=== PATIENT | female | born 1950 | race Caucasian/White ===

== ENCOUNTER 2019-03-06 17:03 | Inpatient (IN) ==
[2019-03-06] MEDS ORDERED: 0.9 % SODIUM CHLORIDE 1,000 ML IV ONE (17:14)
[2019-03-06] MEDS ORDERED: METOPROLOL TARTRATE 50 MG TABLET PO ONE (17:16)
--- NOTE | 2019-03-06 17:19 | Emergency Department Note ---
Arrhythmia/Palpitations HPI - General Chief Complaint: Arrhythmia/Palpitations Stated Complaint: Rapid heart rate Time Seen by Provider: 03/06/19 17:06 Source: patient, other Mode of arrival: wheelchair Limitations: no limitations - History of Present Illness HPI Narrative: 68-year-old female, somewhat anxious, comes in from Dr. Chaudhry's office for atrial fibrillation with rapid ventricular response. Heart rate is in the 140s. She used to have atrial fibrillation but she is not on any medicine for that now. She moved here from [place] over a year ago and has been off her medicine since then. Denies recent illness - Related Data Home Medications Medication Instructions Recorded Confirmed mirtazapine 15 mg tablet 15 mg PO QDAY 03/06/19 03/06/19 Previous Rx's Medication Instructions Recorded Albuterol Sulfate [Ventolin] 2 puff INH Q4-6HP PRN #1 inhaler 03/03/19 Fluticasone Propion/Salmeterol 1 each IH BID #1 blst.w.dev 03/03/19 [Fluticasone-Salmeterol 250-50] Lisinopril [Zestril] 10 mg PO DAILY #30 tab 03/03/19 Allergies Allergy/AdvReac Type Severity Reaction Status Date / Time prednisone [PREDNISONE] AdvReac Intermediate Agitation Verified 03/06/19 17:10 From Allergy Unknown HIVES Uncoded 03/06/19 17:10 Review of Systems All systems ED: reviewed and negative except as stated. Past Medical History - Past Medical History Attestation: Yes: The following information was validated with the patient. [facility] Narrative: Medical History CVA (cerebral vascular accident) (Acute) Pneumonia (Acute) Muscle spasm (Acute) Acute intoxication from hallucinogens (Acute) Stress and adjustment reaction (Acute) Medical history: Reports: atrial fibrillation, COPD, CVA (2 previous cva 1 yr and also 1 mo ago), hypertension, kidney stones Psychiatric history: Reports: anxiety Surgical history ED: Reports: appendectomy, cholecystectomy, hysterectomy, other (bladder susp) - Social History smoking status: Current some day smoker Alcohol use: Reports: None Drug use: Reports: none Physical Exam Overweight female. Normocephalic atraumatic. Conjunctive are clear sclera whit e nonicteric. No nasal discharge or congestion. Oropharynx pink moist. Neck is supple without lymphadenopathy or thyromegaly. Heart is tachycardic. I cannot hear a murmur. Lungs are basically clear to auscultation bilaterally without wheezes rales rhonchi or respiratory distress. Abdomen soft nontender nondistended. No pedal edema . Alert oriented. Anxious Limitations: no limitations Course Vital Signs Temperature 97.5 F 03/06/19 17:04 Respiratory Rate 20 03/06/19 17:04 Blood Pressure 169/115 03/06/19 17:04 Pulse Oximetry (%) 96 03/06/19 17:04 Temperature 97.5 F 03/06/19 17:11 Pulse Rate 89 03/06/19 20:26 Respiratory Rate 16 03/06/19 20:26 Blood Pressure 137/96 03/06/19 20:16 Pulse Oximetry (%) 98 03/06/19 20:26 Arrhythmia/Palpitations - Lab Data Lab results reviewed: Yes I reviewed the patient's lab results. Result diagrams: 03/06/19 19:24 03/06/19 17:31 Lab Results 03/06/19 03/06/19 03/06/19 Range/Units 17:31 17:31 17:31 WBC TNP RBC TNP Hgb TNP Hct TNP POC Hct 50.0 H (36.0-48.0) % MCV TNP MCH TNP MCHC TNP RDW TNP Plt Count TNP MPV TNP Gran % (38.0-78.0) % Lymph % (Auto) (15.5-49.0) % [place] % (Auto) (1.0-12.0) % Eos % (Auto) (0.0-7.0) % Baso % (Auto) (0.0-2.0) % Gran # (1.8-8.0) K/mcL Lymph # (Auto) (1.5-4.8) K/mcL [place] # (Auto) (0.1-0.9) K/mcL Eos # (Auto) (0.0-0.7) K/mcL Baso # (Auto) (0.0-0.3) K/mcL PT 12.6 (11.9-14.5) sec INR 0.9 (0.9-1.1) POC Sodium 143 (133-145) mmol/L Sodium 142 (133-145) mmol/L POC Potassium 3.7 (3.3-5.1) mmol/L Potassium 4.1 (3.3-5.1) mmol/L POC Chloride 107 (96-108) mmol/L Chloride 107 (96-108) mmol/L Carbon Dioxide 21 L (22-30) mmol/L POC Total CO2 26 (22-30) mmol/L Anion Gap 14.0 (8-16) POC BUN 7 L (8-23) mg/dl BUN 7 L (8-23) mg/dl Creatinine 0.5 L (0.6-1.1) mg/dl POC Creatinine 0.5 L (0.6-1.1) mg/dl GFR Calculation 99 Glucose 94 (70-105) mg/dL POC Glucose 92 (70-105) mg/dL Calcium 9.6 (8.6-10.4) mg/dl POC WB Ioniz Calcium 1.07 L (1.16-1.32) mmol/L Magnesium 1.9 (1.6-2.5) mg/dL Total Bilirubin 0.5 (0.0-1.0) mg/dL AST 31 (0-37) U/l ALT 22 (0-40) U/l Alkaline Phosphatase 88 (39-117) U/L Troponin T (0-0.03) ng/ml Total Protein 7.5 (5.9-8.4) gm/dL Albumin 4.0 (3.2-5.2) gm/dL Globulin 3.5 (2.2-3.7) gm/dL Albumin/Globulin Ratio 1.1 (1.0-2.3) TSH 4.18 (0.27-5.01) uIU/ml Urine Color Urine Appearance Urine pH (5.0-9.0) Ur Specific [place] (1.000-1.035) Urine Protein (NEG) mg/dL Urine Glucose (UA) (NEG) mg/dL Urine Ketones (NEG) mg/dL Urine Occult Blood (<0.03) mg/dL Urine Nitrate (NEG) Urine Bilirubin (NEG) mg/dL Urine Urobilinogen (NEG) mg/dL Ur Leukocyte Esterase (NEG) /uL Urine RBC (0-1) /hpf Urine WBC (0-4) /hpf Ur Squamous Epith Cells (0-4) /hpf Urine Bacteria (0) /hpf Ur Culture Indicated? 03/06/19 03/06/19 03/06/19 Range/Units 17:31 18:41 19:24 WBC 7.9 RBC 5.53 H Hgb 16.2 H Hct 48.6 H POC Hct (36.0-48.0) % MCV 88.0 MCH 29.3 MCHC 33.3 RDW 14.8 H Plt Count 217 MPV 8.2 Gran % 52.0 (38.0-78.0) % Lymph % (Auto) 37.0 (15.5-49.0) % [place] % (Auto) 8.2 (1.0-12.0) % Eos % (Auto) 2.0 (0.0-7.0) % Baso % (Auto) 0.8 (0.0-2.0) % Gran # 4.1 (1.8-8.0) K/mcL Lymph # (Auto) 2.9 (1.5-4.8) K/mcL [place] # (Auto) 0.6 (0.1-0.9) K/mcL Eos # (Auto) 0.2 (0.0-0.7) K/mcL Baso # (Auto) 0.1 (0.0-0.3) K/mcL PT (11.9-14.5) sec INR (0.9-1.1) POC Sodium (133-145) mmol/L Sodium (133-145) mmol/L POC Potassium (3.3-5.1) mmol/L Potassium (3.3-5.1) mmol/L POC Chloride (96-108) mmol/L Chloride (96-108) mmol/L Carbon Dioxide (22-30) mmol/L POC Total CO2 (22-30) mmol/L Anion Gap (8-16) POC BUN (8-23) mg/dl BUN (8-23) mg/dl Creatinine (0.6-1.1) mg/dl POC Creatinine (0.6-1.1) mg/dl GFR Calculation Glucose (70-105) mg/dL POC Glucose (70-105) mg/dL Calcium (8.6-10.4) mg/dl POC WB Ioniz Calcium (1.16-1.32) mmol/L Magnesium (1.6-2.5) mg/dL Total Bilirubin (0.0-1.0) mg/dL AST (0-37) U/l ALT (0-40) U/l Alkaline Phosphatase (39-117) U/L Troponin T < 0.01 (0-0.03) ng/ml Total Protein (5.9-8.4) gm/dL Albumin (3.2-5.2) gm/dL Globulin (2.2-3.7) gm/dL Albumin/Globulin Ratio (1.0-2.3) TSH (0.27-5.01) uIU/ml Urine Color Straw Urine Appearance Clear Urine pH 7.0 (5.0-9.0) Ur Specific [place] 1.004 (1.000-1.035) Urine Protein Neg (NEG) mg/dL Urine Glucose (UA) Negative (NEG) mg/dL Urine Ketones Neg (NEG) mg/dL Urine Occult Blood 0.03 A (<0.03) mg/dL Urine Nitrate Neg (NEG) Urine Bilirubin Neg (NEG) mg/dL Urine Urobilinogen Neg (NEG) mg/dL Ur Leukocyte Esterase 25 A (NEG) /uL Urine RBC 1 (0-1) /hpf Urine WBC 3 (0-4) /hpf Ur Squamous Epith Cells 0 (0-4) /hpf Urine Bacteria Few A (0) /hpf Ur Culture Indicated? Yes Urinalysis [id number] dipstick showed large amount of leukocytes positive nitrites no blood. Specific gravity normal-this was a FemCath - Radiology Data Radiology results reviewed: Yes I reviewed the patient's radiology results. Chest x-ray shows no acute CT scan head shows no acute findings. Old infarcts noted with encephalomalacia - EKG Data EKG attestation: Yes I reviewed and interpreted this EKG., Yes There are no EKG findings of acute coronary syndrome, Yes This EKG will be read by precision lens generator EKG results narrative: Atrial fibrillation with rate of 140, rapid ventricular response Disposition Pt seen by PATIENTS TRANSPORTER/PA only: No Clinical Impression: Atrial fibrillation with RVR UTI (urinary tract infection) Qualifiers: Urinary tract infection type: acute cystitis Hematuria presence: without hematuria Qualified Code(s): N30.00 - Acute cystitis without hematuria Hypertension Qualifiers: Hypertension type: essential hypertension Qualified Code(s): I10 - Essential (primary) hypertension Summary: Ordered laboratory work-up along with chest x-ray. Start p.o. metoprolol as she is already been in RVR for quite some time Metoprolol did not bring her blood pressure down so hydralazine is ordered. Chest x-ray shows no acute. UTI seen on film cath urinalysis [id number] dips tick. Start Macrobid She remains in A. fib with RVR pulses in the 120s so Cardizem drip was started She complained of headache so given Tylenol. However she was quite tearful and the headache was located in her left bahai/parietal area. As it was acute onset we will go ahead and do a CT scan of the head and give her some Dilaudid as well She requires admission for atrial fibrillation with rapid ventricular response and blood pressure control Discussed findings with hospitalist Dr. Downey. He agreed to accept patient for further care and evaluation in the hospital Disposition: Home, Self-Care Condition: Serious Referrals: Hollis Chaudhry MD [Primary Care Provider] -
[2019-03-06 17:41] LABS: POC Blood Urea Nitrogen 7 mg/dl (8-23); POC CO2 26 mmol/L (22-30); POC Calcium, Ionized 1.07 mmol/L (1.16-1.32); POC Chloride 107 mmol/L (96-108); POC Creatinine 0.5 mg/dl (0.6-1.1); POC Glucose, Random 92 mg/dL (70-105); POC Potassium 3.7 mmol/L (3.3-5.1); POC Sodium 143 mmol/L (133-145)
--- NOTE | 2019-03-06 17:54 | XRay Report ---
HISTORY: Dysrhythmia FINDINGS: The heart is borderline enlarged and slightly larger today than it was on 03/03/19. The difference could be related to differences between systole and diastole.. No congestive heart failure or pleural effusion are present. The bands of discoid atelectasis seen in the right lower lobe and right middle lobe on the chest CT done on 03/03/19 have resolved. There is persistent pleural thickening of the major fissure in the left side. IMPRESSION: Borderline cardiomegaly and no congestive heart failure Interpreted and Authenticated by: Diallo De Santiago 03/06/19
[2019-03-06 18:27] LABS: INR 0.9 (0.9-1.1); Prothrombin Time 12.6 sec (11.9-14.5)
[2019-03-06] MEDS ORDERED: hydrALAZINE 20 MG/ML VIAL IV ONE (18:47)
[2019-03-06] MEDS ORDERED: NITROFURANTOIN SR 100 MG CAPSULE PO ONE (18:58)
[2019-03-06 19:08] LABS: Thyroid Stimulating Hormone 4.18 uIU/ml (0.27-5.01)
[2019-03-06] MEDS ORDERED: ACETAMINOPHEN 325 MG TABLET PO ONE (19:12)
[2019-03-06] MEDS ORDERED: DILTIAZEM 25 MG/5 ML VIAL IV ONE (19:18)
[2019-03-06 19:19] LABS: ALT/SGPT 22 U/l (0-40); AST/SGOT 31 U/l (0-37); Albumin/Globulin Ratio 1.1 (1.0-2.3); Alkaline Phosphatase 88 U/L (39-117); Bilirubin,Total 0.5 mg/dL (0.0-1.0); Blood Urea Nitrogen 7 mg/dl (8-23); Calcium 9.6 mg/dl (8.6-10.4); Carbon Dioxide 21 mmol/L (22-30); Chloride 107 mmol/L (96-108); Globulin 3.5 gm/dL (2.2-3.7); Glomerular Filtration Rate 99; Glucose 94 mg/dL (70-105)
[2019-03-06] MEDS ORDERED: DILTIAZEM 125 MG in DEXTROSE 5% IN WATER 100 ML IV SCH (19:30)
[2019-03-06] MEDS ORDERED: HYDROmorphone 2 MG/ML VIAL IV PRN (19:36)
[2019-03-06 19:52] LABS: Appearance,Urine CLEAR; Bacteria,Urine FEW /hpf (0); Bilirubin,Urine NEG (NEG); Color,Urine STRAW; Culture Indicated,Urine YES; Glucose,Urine (UA) NEGATIVE (NEG); Ketones,Urine NEG (NEG); Leukocyte Esterase,Urine 25 /uL (NEG); Nitrate,Urine NEG (NEG); Protein,Urine NEG (NEG); Specific Gravity,Urine 1.004 (1.000-1.035); Urine Blood 0.03 mg/dL (<0.03); Urine RBC 1 /hpf (0-1); Urine Squamous Epithelial Cell 0 /hpf (0-4); Urine WBC 3 /hpf (0-4); Urobilinogen,Urine NEG (NEG)
[2019-03-06 19:52] LABS: Basophils # (Auto) 0.1 K/mcL (0.0-0.3); Basophils % (Auto) 0.8 % (0.0-2.0); Eosinophils # (Auto) 0.2 K/mcL (0.0-0.7); Hematocrit 48.6 % (36.0-48.0); Hemoglobin 16.2 g/dL (12.0-15.0); Lymphocytes # (Auto) 2.9 K/mcL (1.5-4.8); Mean Corpuscular HGB Conc 33.3 g/dL (31.0-36.0); Mean Platelet Volume 8.2 fL (7.4-10.4); Monocytes # (Auto) 0.6 K/mcL (0.1-0.9); Monocytes % (Auto) 8.2 % (1.0-12.0); Platelet Count 217 K/mcL (140-440); RBC 5.53 M/mcL (4.00-5.20); Red Cell Distribution Width 14.8 % (11.5-14.5); WBC 7.9 K/mcL (4.5-11.0)
[2019-03-06] MEDS ORDERED: cefTRIAXone 2 GM in DEXTROSE 5% IN WATER 50 ML IV SCH (21:16)
[2019-03-06] MEDS ORDERED: ONDANSETRON 4 MG/2 ML VIAL IV PRN (21:16)
[2019-03-06] MEDS: 0.9 % SODIUM CHLORIDE 10 ML SYRINGE IV SCH (22:00)
[2019-03-06] MEDS ORDERED: IPRATROPIUM/ALBUTEROL 3 ML AMPUL.NEB NEB PRN (22:05)
[2019-03-06] MEDS ORDERED: cefTRIAXone 2 GM VIAL ONE (22:08)
--- NOTE | 2019-03-06 22:08 | Internal Med History&Physical ---
Medical - H&P: [facility] Patient information: Note initiated : 03/06/19 at 10:06 pm Service Date, if different from initiated Date: [] Patient: Aurelia Pride a 68 y/o F admitted on 03/06/19 for Rapid heart rate. Chief Complaint: [] History of present illness: Ms. Pride is a 68 year old F 68-year-old female with a history of anxiety was transferred from primary care's office due to atrial fibrillation RVR. Patient's heart rate was in the 140s in the ER and blood pressure was more than 160. She was given metoprolol. Without much improvement and then she was started on Cardizem drip she is also r eceived hydralazine IV for axillary hypertension. Patient denied any cardiac history other than atrial fibrillation, no respiratory symptoms but she used to have nebulizer treatments in the past. She moved from [place] over a year ago and was not taking any of her medications. - Constitutional Constitutional: Present: fatigue. Absent: anorexia, chills, daytime sleepiness, excessive sweating - EENT Eyes: Absent: blurry vision, change in vision, decreased night vision Ears: Absent: ear discharge, ear pain, tinnitus Nose, mouth and throat: Absent: bleeding gums, change in voice, dental pain - Cardiovascular Cardiovascular: Present: chest pain with activity, dyspnea, dyspnea on exertion. Absent: leg edema, leg ulcers - Respiratory Respiratory: Present: dyspnea on exertion, pain on inspirtation. Absent: wheezing - Gastrointestinal Gastrointestinal: Present: cramping. Absent: diarrhea, dyspepsia, dysphagia - Genitourinary Genitourinary: Absent: abnormal vaginal bleeding, amenorrhea, breast mass - Neurological Neurological: Present: focal weakness, weakness. Absent: confusion, tingling, tremor(s) - Psychiatric Psychiatric: Present: anxiety. Absent: behavioral changes, change in appetite, confusion Medical - H&P: PMH Medical history: Medical History CVA (cerebral vascular accident) (Acute) Pneumonia (Acute) Muscle spasm (Acute) Acute intoxication from hallucinogens (Acute) Stress and adjustment reaction (Acute) Family history: reviewed and not pertinent Medical - H&P: Meds Home Medications Medication Instructions Recorded Confirmed Type Albuterol Sulfate [Ventolin] 2 puff INH Q4-6HP PRN #1 inhaler 03/03/19 03/06/19 Rx Fluticasone Propion/Salmeterol 1 each IH BID #1 blst.w.dev 03/03/19 03/06/19 Rx [Fluticasone-Salmeterol 250-50] Lisinopril [Zestril] 10 mg PO DAILY #30 tab 03/03/19 03/06/19 Rx mirtazapine 15 mg tablet 15 mg PO QDAY 03/06/19 03/06/19 History Allergies Allergy/AdvReac Type Severity Reaction Status Date / Time prednisone [PREDNISONE] AdvReac Intermediate Agitation Verified 03/06/19 17:10 From Allergy Unknown HIVES Uncoded 03/06/19 17:10 Medical - H&P: Exam - Constitutional Vitals: Temp Pulse Resp BP Pulse Ox 98.7 F 97 H 18 118/97 100 03/06/19 21:19 03/06/19 21:19 03/06/19 21:32 03/06/19 21:32 03/06/19 21:19 General appearance: mild distress, morbidly obese - Head Head exam: Present: atraumatic, normal inspection - Expanded Head Exam Head exam: Absent: abrasion, contusion, general tenderness - Eye Eye exam: Absent: nystagmus Pupils: Present: PERRL. Absent: miosis - ENT ENT exam: Present: mucous membranes dry, normal exam - Expanded ENT Exam Nose & sinuses exam: Present: external nose, grossly normal. Absent: rhinophyma, inflamed nasal mucosa, nasal discharge, perforated septum, deviated septum Mouth exam: Present: dry mucosa. Absent: drooling, laceration, moist - Neck Neck exam: Absent: full ROM, lymphadenopathy, meningismus - GI/Abdominal GI/Abdominal exam: Present: normal bowel sounds, soft, distended - Neurological Exam Neurological exam: Present: alert, CN II-XII intact (Motor strength bilateral upper and lower extremity equal 4 x 5, patient was complaining of right upper extremity weakness I do not feel any significant difference. Reflexes intactSensory examination grossly intact), oriented X3, reflexes normal - Expanded Neurological Exam Neurological exam expanded: Present: expressive aphasia. Absent: ataxia, receptive aphasia Patient oriented to: Present: person, place, time Speech: Present: expressive aphasia - Psychiatric Psychiatric exam: Present: anxious, flat affect Medical - H&P: Reslt - Labs CBC & Chem 7: 03/06/19 19:24 03/06/19 17:31 Labs: Short CBC 03/06/19 03/06/19 Range/Units 17:31 19:24 WBC TNP 7.9 Hgb TNP 16.2 H Hct TNP 48.6 H Plt Count TNP 217 BMP 03/06/19 17:31 Sodium 142 Potassium 4.1 Chloride 107 Carbon Dioxide 21 L BUN 7 L Creatinine 0.5 L Glucose 94 Calcium 9.6 Cardiac Enzymes 03/06/19 Range/Units 17:31 Troponin T < 0.01 (0-0.03) ng/ml Liver Function 03/06/19 Range/Units 17:31 Total Bilirubin 0.5 (0.0-1.0) mg/dL AST 31 (0-37) U/l ALT 22 (0-40) U/l Alkaline Phosphatase 88 (39-117) U/L Albumin 4.0 (3.2-5.2) gm/dL Urine 03/06/19 Range/Units 18:41 Urine Color Straw Urine Appearance Clear Urine pH 7.0 (5.0-9.0) Ur Specific [place] 1.004 (1.000-1.035) Urine Protein Neg (NEG) mg/dL Urine Glucose (UA) Negative (NEG) mg/dL Medical - H&P: A/P - Narrative A/P Narrative: Atrial fibrillation RVR Patient was given metoprolol IV in the ER without any improvement Previous history of atrial fibrillation was not taking any medications or anticoagulation Plan She was started on diltiazem bolus and continue titration We will restart her on apixaban Echocardiogram ordered Trending the troponin Ordered TSH level Electrolytes History of stroke Patient was complaining of slightly worsening of right-sided weakness since this morning But on examination bilateral upper extremity motor strength appears to be equal CT scan in the ER no new stroke If she continued having symptoms we will obtain an MRI Continue aspirin 81 mg History of essential hypertension- Hypertension Blood pressure was more than 160 in the ER Monitor with the Cardizem drip and restart beta-stephan Probable COPD-not in any exacerbation DuoNeb's every 4 hours as needed Continuous pulse oximetry DVT prophylaxis-SCDs, starting apixaban CODE STATUS-full code
[2019-03-06] MEDS ORDERED: ACETAMINOPHEN 1,000 MG/100 ML BOTTLE IV ONE (22:40)
[2019-03-06 22:44] LABS: ALT/SGPT 22 U/l (0-40); AST/SGOT 25 U/l (0-37); Albumin 3.7 gm/dL (3.2-5.2); Albumin/Globulin Ratio 1.2 (1.0-2.3); Alkaline Phosphatase 82 U/L (39-117); Bilirubin,Total 0.5 mg/dL (0.0-1.0); Blood Urea Nitrogen 6 mg/dl (8-23); Calcium 8.7 mg/dl (8.6-10.4); Carbon Dioxide 24 mmol/L (22-30); Chloride 107 mmol/L (96-108); Globulin 3.2 gm/dL (2.2-3.7); Glomerular Filtration Rate 99; Glucose 99 mg/dL (70-105); Thyroid Stimulating Hormone 5.94 uIU/ml (0.27-5.01)
[2019-03-06] MEDS ORDERED: ALBUTEROL SULFATE 2.5 MG/3 ML NEBULIZER NEB SCH (23:00)
[2019-03-06] MEDS: DOCUSATE SODIUM 100 MG CAPSULE PO SCH (23:15)
[2019-03-07 05:07] LABS: Hematocrit 46.2 % (36.0-48.0); Hemoglobin 15.1 g/dL (12.0-15.0); Mean Cell Volume 89.4 fL (80.0-100.0); Mean Corpuscular HGB Conc 32.8 g/dL (31.0-36.0); Mean Platelet Volume 8.9 fL (7.4-10.4); Platelet Count 168 K/mcL (140-440); RBC 5.16 M/mcL (4.00-5.20); Red Cell Distribution Width 15.1 % (11.5-14.5); WBC 6.5 K/mcL (4.5-11.0)
[2019-03-07 05:09] LABS: ALT/SGPT 21 U/l (0-40); AST/SGOT 27 U/l (0-37); Albumin 3.5 gm/dL (3.2-5.2); Albumin/Globulin Ratio 1.1 (1.0-2.3); Alkaline Phosphatase 80 U/L (39-117); Bilirubin,Total 0.5 mg/dL (0.0-1.0); Blood Urea Nitrogen 7 mg/dl (8-23); Calcium 8.9 mg/dl (8.6-10.4); Carbon Dioxide 23 mmol/L (22-30); Chloride 107 mmol/L (96-108); Globulin 3.1 gm/dL (2.2-3.7); Glomerular Filtration Rate 106; Glucose 102 mg/dL (70-105)
[2019-03-07] MEDS: 0.9 % SODIUM CHLORIDE 10 ML SYRINGE IV SCH ×3 (05:47→20:42)
[2019-03-07] MEDS ORDERED: PANTOPRAZOLE 40 MG TABLET PO SCH (07:30)
[2019-03-07] MEDS ORDERED: DILTIAZEM 125 MG in DEXTROSE 5% IN WATER 100 ML IV SCH (07:30)
[2019-03-07 07:54] LABS: Band Neutrophils % 3 % (0-10); Eosinophils % (Manual) 3 % (0-7); Lymphocytes % 43 % (15-49); Monocytes % (Manual) 9 % (1-12); Platelet Estimate NORMAL (NORMAL); RBC Morphology NORMAL (NORMAL); Segmented Neutrophils % 42 % (38-78)
--- NOTE | 2019-03-07 08:02 | Cat Scan Report ---
History: Headaches and tachycardia TECHNIQUE: The brain was imaged without contrast at 2.5 mm intervals. The radiation exposure was limited using dose reduction technology. A large old lacunar infarct with encephalomalacia is present lateral to the left ventricle. Involves a portion of the anterior body of the left caudate nucleus, left boyd radiata and the top of the putamen. This was not present on the prior brain MRI done at [facility] on 07/17/16. A 3 mm old lacunar infarct is present anteriorly and medially in the left thalamus. This is a chronic stable finding. No new infarct is identified. There is no hemorrhage or mass effect. There is mild atrophy is present, predominantly involving the frontal and temporal lobes. The atrophy has progressed since 2017. The ventricles are prominent but proportionate to the atrophy. No abnormal extra-axial fluid collections present. Minor mucosal thickening is seen along the van of a few anterior ethmoid air cells. The frontal sinuses are clear. IMPRESSION: Old lacunar infarcts in the left basal ganglia, boyd radiata and left thalamus Worsening cerebral atrophy Dr. Tom was called with the results Interpreted and Authenticated by: Diallo De Santiago 03/07/19
[2019-03-07] MEDS ORDERED: APIXABAN 5 MG TABLET PO SCH (09:00)
[2019-03-07] MEDS ORDERED: DILTIAZEM 30 MG TABLET PO SCH (09:00)
[2019-03-07] MEDS ORDERED: ASPIRIN 81 MG TAB.CHEW CHEWED SCH (09:00)
[2019-03-07] MEDS: DOCUSATE SODIUM 100 MG CAPSULE PO SCH ×3 (09:09→21:01)
[2019-03-07] MEDS: ACETAMINOPHEN 1,000 MG/100 ML BOTTLE IV PRN ×2 (09:10)
[2019-03-07] MEDS ORDERED: traMADol 50 MG TABLET PO PRN (10:31)
[2019-03-07] MEDS ORDERED: DILTIAZEM 125 MG in DEXTROSE 5% IN WATER 100 ML IV PRN ×2 (11:00→12:18)
[2019-03-07] MEDS ORDERED: LISINOPRIL 10 MG TABLET PO SCH (11:22)
[2019-03-07] MEDS ORDERED: ALBUTEROL SULFATE 1 PUFF INHALER INH PRN ×2 (11:23→12:18)
--- NOTE | 2019-03-07 11:26 | Internal Med Progress Note ---
Medical - PN: Subj Patient information: Note initiated : 03/07/19 at 11:24 am Service Date, if different from initiated Date: [] Patient: Aurelia Pride 68 y/o F admitted on 03/06/19 for Rapid heart rate. Chief Complaint: [] Interval history: 68-year-old female with a history of previous CVA x2, atrial fibrillation was not taking her medications admitted with worsening shortness of breath and A. fi b RVR. She was given metoprolol in the ER which did not improve her heart rate then started on Cardizem drip. 03/07-her heart rate is 06/26/2019 this morning she was started on p.o. Cardizem 60 twice daily in addition to the Cardizem drip and she converted back to normal sinus rhythm her heart rate has been 60-70 and blood pressure is slightly elevated. We will continue monitoring her on telemetry and continue with the p.o. Cardizem. Ordered an echocardiogram troponin trend has been negative. She seems to be having drug-seeking behavior she was asked for benzodiazepine and narcotics. Pertinent ROS: General appearance-obese not in any distress, alert oriented Respiratory-no shortness of breath no wheezing CVS-no chest pain no palpitations Abdominal-distended no pain Urinary-denied any urine symptoms Lower extremity-denied any pain she has mild edema Neurology-denied any new focal deficit she mentions she has old right-sided weakness and aphasia which seems to be the same - Constitutional Vitals: Vital Signs Temp Pulse Resp BP Pulse Ox 97.2 F 60 18 154/85 98 03/07/19 11:01 03/07/19 11:03 03/07/19 11:03 03/07/19 11:01 03/07/19 11:03 Period Temp Pulse Resp BP Sys/Berger Pulse Ox Last 24 Hr 97.2 F-98.8 F 37-146 12-29 111-182/67-137 85-100 Intake and Output 03/06/19 03/07/19 03/07/19 21:59 05:59 13:59 Intake Total 1007 442 324 Output Total 2 51 Balance 1007 440 273 Weight 225 lb 12.8 oz 225 lb 12.8 oz Intake & Output: Intake & Output 03/06/19 03/07/19 03/07/19 21:59 05:59 13:59 Intake Total 1007 442 324 Output Total 2 51 Balance 1007 440 273 Weight 225 lb 12.8 oz 225 lb 12.8 oz Intake: IV 1007 152 124 Sodium Chloride 0.9% 1,000 ml @ 1000 Wide Open IV .Q0M ONE Rx#: [id number] Cardizem 125 mg In Dextrose 5% 7 2 24 in Water 100 ml @ 5 MG/HR 5 mls /hr IV Q12H [facility] Rx#:[id number] Rocephin 2 gm In Dextrose 5% in 50 Water 50 ml @ 100 mls/hr IV Q24H [facility] Rx#:[id number] Oral 290 200 Output: Void Amount 50 # of times incontinent of urine 2 1 Other: Meal Breakfast Percent of Meal Consumed 25% Feeding Ability Independent Urine Appearance Fem Cath Clear Urine Color Fem Cath Pale Stool Size Moderate Stool Color Brown Green Stool Consistency Loose # Voids 1 # Bowel Movements 1 General appearance: cooperative, morbidly obese, no acute distress - Head Head exam: Present: atraumatic, normal inspection, normocephalic - Eye Eye exam: Present: normal appearance. Absent: conjunctival injection - ENT ENT exam: Present: normal exam, normal external ear exam - Neck Neck exam: Present: full ROM, normal inspection. Absent: meningismus, tenderness - Respiratory Respiratory exam: Absent: rales, rhonchi, stridor - Cardiovascular Cardiovascular exam: Present: normal rate and rhythm. 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 stroke) - Psychiatric Psychiatric exam: Present: anxious Medical - PN: Obj Da - Labs CBC & Chem 7: 03/07/19 03:30 03/07/19 03:30 Labs: Abnormal Lab Results 03/07/19 03/07/19 03/06/19 03:30 03:30 21:35 RBC Hgb 15.1 H Hct POC Hct RDW 15.1 H Carbon Dioxide POC BUN BUN 7 L 6 L Creatinine 0.4 L 0.5 L POC Creatinine POC WB Ioniz Calcium TSH 5.94 H Urine Occult Blood Ur Leukocyte Esterase Urine Bacteria 03/06/19 03/06/19 03/06/19 19:24 18:41 17:31 RBC 5.53 H Hgb 16.2 H Hct 48.6 H POC Hct 50.0 H RDW 14.8 H Carbon Dioxide 21 L POC BUN 7 L BUN 7 L Creatinine 0.5 L POC Creatinine 0.5 L POC WB Ioniz Calcium 1.07 L TSH Urine Occult Blood 0.03 A Ur Leukocyte Esterase 25 A Urine Bacteria Few A Meds: Medications Albuterol Sulfate (Ventolin) 2 puff INH Q4-6HP PRN PRN Reason: Shortness Of Breath Or Wheezing Albuterol/Ipratropium (Duoneb) 3 ml NEB Q4HP PRN PRN Reason: Shortness Of Breath Apixaban (Eliquis) 5 mg PO BID [facility] Last Admin: 03/07/19 09:09 Dose: 5 mg Documented by: Aspirin (Aspirin) 81 mg CHEWED DAILY [facility] Last Admin: 03/07/19 09:09 Dose: 81 mg Documented by: Diltiazem HCl (Cardizem) 60 mg PO Q12 [facility] Last Admin: 03/07/19 09:09 Dose: 60 mg Documented by: Docusate Sodium (Colace) 100 mg PO BID [facility] Last Admin: 03/07/19 09:09 Dose: Not Given Documented by: Acetaminophen (Ofirmev) 1,000 mg in 100 mls @ 200 mls/hr IV Q8HP PRN; Protocol PRN Reason: Pain Last Infusion: 03/07/19 09:50 Dose: Infused Documented by: Diltiazem HCl 125 mg/ Dextrose 125 mls @ 5 mls/hr IV Q12HP PRN; Protocol PRN Reason: Tachyarrhythmias Lisinopril (Zestril) 10 mg PO DAILY [facility] Mirtazapine (Remeron) 15 mg PO QDAY [facility] Ondansetron HCl (Zofran) 4 mg IV Q4-6HP PRN; Protocol PRN Reason: Nausea And Vomiting Pantoprazole Sodium (Protonix) 40 mg PO QAMAC [facility] Last Admin: 03/07/19 07:55 Dose: 40 mg Documented by: Pneumococcal Polyvalent Vaccine (Pneumovax 23) 0.5 ml IM .ONCE ONE Stop: 03/08/19 10:01 Fluticasone/Salmeterol (Advair 250-50 Diskus) puff INH BID [facility] Sodium Chloride (Saline Flush) 10 ml IV Q8 [facility]ITER Last Admin: 03/07/19 05:47 Dose: 10 ml Documented by: Tramadol HCl (Ultram) 50 mg PO Q8HP PRN PRN Reason: Pain Last Admin: 03/07/19 10:37 Dose: 50 mg Documented by: Medical - PN: A/P - Time Spent With Patient Total time spent is greater than 50% in coordination of care (as documented) at patient's floor/unit and/or counseling patient: - Narrative A/P Narrative: Atrial fibrillation RVR-converted to normal sinus rhythm Patient was given metoprolol IV in the ER without any improvement Previous history of atrial fibrillation was not taking any medications or anticoagulation She was started on diltiazem bolus and continue titration She was also started on Cardizem 60 twice daily p.o. Plan She was converted to normal sinus rhythm and we will monitor her telemetry next 24-hour and her heart rate needs to be controlled on p.o. Cardizem Anticoagulation with apixaban Pending echocardiogram Troponin trend has been negative TSH 4.5 History of stroke Patient has been giving different narratives about her stroke Objectively no evidence of focal neuro deficit She has aphasia and right-sided weakness from previous stroke CT scan in the ER no new stroke-no new lesions identified but suggestive of focal deficit Continue aspirin 81 mg and anticoagulation History of essential hypertension- Uncontrolled hypertension blood pressure was more than 160 in the ER Monitor with the Cardizem drip and restart her lisinopril 10 mg Probable COPD-not in any exacerbation DuoNeb's every 4 hours as needed and home inhaler Continuous pulse oximetry DVT prophylaxis-SCDs, started apixaban CODE STATUS-full code Medical - PN: Qual - Stroke Onset of Symptoms Date: 08/04/17 Symptom Onset Unknown: No - VTE Deep Vein Thrombosis/Pulmonary Embolism Present on Admission: No
[2019-03-07] MEDS ORDERED: LISINOPRIL 10 MG TABLET ONE (11:56)
[2019-03-07] MEDS ORDERED: ONDANSETRON 4 MG/2 ML VIAL IV PRN (12:18)
[2019-03-07] MEDS ORDERED: ACETAMINOPHEN 1,000 MG/100 ML BOTTLE IV PRN (12:18)
[2019-03-07] MEDS ORDERED: IPRATROPIUM/ALBUTEROL 3 ML AMPUL.NEB NEB PRN (12:18)
[2019-03-07] MEDS: traMADol 50 MG TABLET PO PRN (18:02)
[2019-03-07] MEDS: DILTIAZEM 30 MG TABLET PO SCH (20:42)
[2019-03-07] MEDS: APIXABAN 5 MG TABLET PO SCH (20:42)
[2019-03-07] MEDS: FLUTICASONE/SALMETEROL 250/50 INHALER #14 INH SCH (20:43)
[2019-03-07] MEDS ORDERED: FLUTICASONE/SALMETEROL 250/50 INHALER #14 INH SCH (21:00)
[2019-03-08] MEDS: 0.9 % SODIUM CHLORIDE 10 ML SYRINGE IV SCH ×3 (05:56→22:00)
[2019-03-08] MEDS: traMADol 50 MG TABLET PO PRN ×2 (07:09→20:55)
[2019-03-08] MEDS ORDERED: PANTOPRAZOLE 40 MG TABLET PO SCH (07:30)
[2019-03-08 07:32] LABS: Hematocrit 42.5 % (36.0-48.0); Hemoglobin 13.9 g/dL (12.0-15.0); Mean Cell Volume 89.8 fL (80.0-100.0); Mean Corpuscular HGB Conc 32.7 g/dL (31.0-36.0); Mean Platelet Volume 9.4 fL (7.4-10.4); Platelet Count 160 K/mcL (140-440); RBC 4.73 M/mcL (4.00-5.20); WBC 6.4 K/mcL (4.5-11.0)
[2019-03-08 08:13] LABS: ALT/SGPT 19 U/l (0-40); AST/SGOT 22 U/l (0-37); Albumin 3.4 gm/dL (3.2-5.2); Albumin/Globulin Ratio 1.2 (1.0-2.3); Alkaline Phosphatase 73 U/L (39-117); Bilirubin,Total 0.4 mg/dL (0.0-1.0); Blood Urea Nitrogen 18 mg/dl (8-23); Calcium 8.7 mg/dl (8.6-10.4); Carbon Dioxide 23 mmol/L (22-30); Chloride 106 mmol/L (96-108); Globulin 2.8 gm/dL (2.2-3.7); Glomerular Filtration Rate 99; Glucose 90 mg/dL (70-105)
[2019-03-08] MEDS ORDERED: LISINOPRIL 10 MG TABLET PO SCH (09:00)
[2019-03-08] MEDS ORDERED: MIRTAZAPINE 15 MG TABLET PO SCH ×3 (09:00→13:00)
[2019-03-08] MEDS ORDERED: ASPIRIN 81 MG TAB.CHEW CHEWED SCH (09:00)
[2019-03-08] MEDS: APIXABAN 5 MG TABLET PO SCH ×2 (09:25→20:55)
[2019-03-08] MEDS: DOCUSATE SODIUM 100 MG CAPSULE PO SCH ×2 (09:26→20:56)
[2019-03-08] MEDS: DILTIAZEM 30 MG TABLET PO SCH ×2 (09:28→20:56)
[2019-03-08] MEDS: FLUTICASONE/SALMETEROL 250/50 INHALER #14 INH SCH ×2 (09:28→20:56)
[2019-03-08 09:58] LABS: Eosinophils % (Manual) 7 % (0-7); Lymphocytes % 39 % (15-49); Monocytes % (Manual) 17 % (1-12); Platelet Estimate NORMAL (NORMAL); RBC Morphology NORMAL (NORMAL); Reactive Lymphocytes 2 % (0-2); Segmented Neutrophils % 35 % (38-78)
[2019-03-08] MEDS ORDERED: PNEUMOCOCCAL 23-VAL P-SAC VAC 0.5 ML SYRINGE IM ONE (10:00)
--- NOTE | 2019-03-08 11:59 | Internal Med Progress Note ---
Medical - PN: Subj Patient information: Note initiated : 03/08/19 at 11:57 am Service Date, if different from initiated Date: [] Patient: Auerlia Pride 68 y/o F admitted on 03/06/19 for Rapid heart rate. Chief Complaint: [] Interval history: 68-year-old female with a history of previous CVA x2, atrial fibrillation was not taking her medications admitted with worsening shortness of breath and A. fi b RVR. She was given metoprolol in the ER which did not improve her heart rate then started on Cardizem drip. 03/07-her heart rate is 06/26/2019 this morning she was started on p.o. Cardizem 60 twice daily in addition to the Cardizem drip and she converted back to normal sinus rhythm her heart rate has been 60-70 and blood pressure is slightly elevated. We will continue monitoring her on telemetry and continue with the p.o. Cardizem. Ordered an echocardiogram troponin trend has been negative. She seems to be having drug-seeking behavior she was asked for benzodiazepine and narcotics. 03/08-she appears to be very weak physical therapy work with her and recommended rehab. Case management working on placement. Her heart rate has been controlled since yesterday and blood pressure is better controlled. Pertinent ROS: General appearance-obese not in any distress Respiratory-denies any shortness of breath mild exertional shortness of breath, no wheezing CVS no chest pain no palpitation Abdomen-distended no pain no diarrhea no constipation Neurology-no neuro deficit Skin no new skin lesions - Constitutional Vitals: Vital Signs Temp Pulse Resp BP Pulse Ox 98.0 F 55 L 18 147/79 93 03/08/19 06:59 03/07/19 23:27 03/08/19 06:59 03/08/19 06:59 03/08/19 06:59 Period Temp Pulse Resp BP Sys/Berger Pulse Ox Last 24 Hr 98.0 F-99.5 F 55-65 11-20 108-152/59-103 90-99 Intake and Output 03/07/19 03/08/19 03/08/19 21:59 05:59 13:59 Intake Total 240 Output Total 101 0 150 Balance 139 0 -150 Weight 227 lb 11.2 oz Intake & Output: Intake & Output 03/07/19 03/08/1903/08/19 21:59 05:59 13:59 Intake Total 240 Output Total 101 0 150 Balance 139 0 -150 Weight 227 lb 11.2 oz Intake: Oral 240 Output: Void Amount 100 0 150 # of times incontinent of urine 1 Other: Meal Dinner Percent of Meal Consumed 100% Urine Appearance Clear Urine Color Dark Yellow Stool Size Moderate Stool Color Brown Stool Consistency Soft Loose # Voids 1 # Bowel Movements 1 General appearance: cooperative, morbidly obese - Head Head exam: Present: atraumatic, normal inspection, normocephalic - Eye Eye exam: Present: normal appearance, PERRL - ENT ENT exam: Present: normal exam, normal external ear exam, normal oropharynx - Neck Neck exam: Present: normal inspection. Absent: lymphadenopathy, tenderness - Respiratory Respiratory exam: Present: wheezes. Absent: accessory muscle use, respiratory distress - Cardiovascular Cardiovascular exam: Present: normal rate and rhythm. Absent: bradycardia, systolic murmur, tachycardia - GI/Abdominal GI/Abdominal exam: Present: normal bowel sounds, soft, distended. Absent: diminished bowel sounds - Neurological Exam Neurological exam: Present: alert, oriented X3 (No new focal deficit) Medical - PN: Obj Da - Labs CBC & Chem 7: 03/08/19 03:35 03/08/19 03:35 Labs: Abnormal Lab Results 03/08/19 03/08/19 03/07/19 03:35 03:35 03:30 RBC Hgb Hct POC Hct RDW 15.0 H Seg Neutrophils % 35 L Monocytes % (Manual) 17 H Carbon Dioxide POC BUN BUN 7 L Creatinine 0.5 L 0.4 L POC Creatinine POC WB Ioniz Calcium TSH Urine Occult Blood Ur Leukocyte Esterase Urine Bacteria 03/07/19 03/06/19 03/06/19 03:30 21:35 19:24 RBC 5.53 H Hgb 15.1 H 16.2 H Hct 48.6 H POC Hct RDW 15.1 H 14.8 H Seg Neutrophils % Monocytes % (Manual) Carbon Dioxide POC BUN BUN 6 L Creatinine 0.5 L POC Creatinine POC WB Ioniz Calcium TSH 5.94 H Urine Occult Blood Ur Leukocyte Esterase Urine Bacteria 03/06/19 03/06/19 18:41 17:31 RBC Hgb Hct POC Hct 50.0 H RDW Seg Neutrophils % Monocytes % (Manual) Carbon Dioxide 21 L POC BUN 7 L BUN 7 L Creatinine 0.5 L POC Creatinine 0.5 L POC WB Ioniz Calcium 1.07 L TSH Urine Occult Blood 0.03 A Ur Leukocyte Esterase 25 A Urine Bacteria Few A Meds: Medications Albuterol Sulfate (Ventolin) 2 puff INH Q4-6HP PRN PRN Reason: Shortness Of Breath Or Wheezing Albuterol/Ipratropium (Duoneb) 3 ml NEB Q4HP PRN PRN Reason: Shortness Of Breath Apixaban (Eliquis) 5 mg PO BID [facility] Last Admin: 03/08/19 09:25 Dose: 5 mg Documented by: Aspirin (Aspirin) 81 mg CHEWED DAILY [facility] Last Admin: 03/08/19 09:24 Dose: 81 mg Documented by: Diltiazem HCl (Cardizem) 60 mg PO Q12 [facility] Last Admin: 03/08/19 09:28 Dose: 60 mg Documented by: Docusate Sodium (Colace) 100 mg PO BID [facility] Last Admin: 03/08/19 09:26 Dose: Not Given Documented by: Diltiazem HCl 125 mg/ Dextrose 125 mls @ 5 mls/hr IV Q12HP PRN; Protocol PRN Reason: Tachyarrhythmias Acetaminophen (Ofirmev) 1,000 mg in 100 mls @ 200 mls/hr IV Q8HP PRN; Protocol PRN Reason: Pain Lisinopril (Zestril) 10 mg PO DAILY [facility] Last Admin: 03/08/19 09:25 Dose: 10 mg Documented by: Mirtazapine (Remeron) 15 mg PO QDAY [facility] Last Admin: 03/08/19 09:26 Dose: 15 mg Documented by: Ondansetron HCl (Zofran) 4 mg IV Q4-6HP PRN; Protocol PRN Reason: Nausea And Vomiting Pantoprazole Sodium (Protonix) 40 mg PO QAMAC [facility] Last Admin: 03/08/19 07:10 Dose: 40 mg Documented by: Fluticasone/Salmeterol (Advair 250-50 Diskus) 1 puff INH BID [facility] Last Admin: 03/08/19 09:28 Dose: 1 puff Documented by: Sodium Chloride (Saline Flush) 10 ml IV Q8 [facility] Last Admin: 03/08/19 05:56 Dose: 10 ml Documented by: Tramadol HCl (Ultram) 50 mg PO Q8HP PRN PRN Reason: Pain Last Admin: 03/08/19 07:09 Dose: 50 mg Documented by: Medical - PN: A/P - Time Spent With Patient Total time spent is greater than 50% in coordination of care (as documented) at patient's floor/unit and/or counseling patient: - Narrative A/P Narrative: Atrial fibrillation RVR-converted to normal sinus rhythm Patient was given metoprolol IV in the ER without any improvement Previous history of atrial fibrillation was not taking any medications or anticoagulation She was started on diltiazem bolus and continue titration She was also started on Cardizem 60 twice daily p.o. She was converted to normal sinus rhythm and we will monitor her telemetry next 24-hour and her heart rate needs to be controlled on p.o. Cardizem Stop Cardizem drip and continued p.o. Cardizem 60 twice daily Anticoagulation with apixaban Echocardiogram showed a mild to moderate mitral calcification, moderately dilated left atrium and LVEF systolic function is low normal-ejection fraction 50 to 55% Troponin trend has been negative TSH 4.5 Plan is to continue outpatient Cardizem 60 twice daily, apixaban, lisinopril History of stroke Patient has been giving different narratives about her stroke Objectively no evidence of focal neuro deficit She has aphasia and right-sided weakness from previous stroke CT scan in the ER no new stroke-no new lesions identified but suggestive of focal deficit Continue aspirin 81 mg and anticoagulation History of essential hypertension- Uncontrolled hypertension blood pressure was more than 160 in the ER Monitor with the Cardizem drip and restart her lisinopril 10 mg Blood pressure has been controlled on Cardizem and lisinopril Probable COPD-not in any exacerbation DuoNeb's every 4 hours as needed and home inhaler Continuous pulse oximetry DVT prophylaxis-SCDs, started apixaban CODE STATUS-full code Medical - PN: Qual - Stroke Onset of Symptoms Date: 08/04/17 Symptom Onset Unknown: No - VTE Deep Vein Thrombosis/Pulmonary Embolism Present on Admission: No
[2019-03-08] MEDS ORDERED: ALBUTEROL SULFATE 1 PUFF INHALER INH PRN (13:25)
[2019-03-08] MEDS ORDERED: ONDANSETRON 4 MG/2 ML VIAL IV PRN (13:25)
[2019-03-08] MEDS ORDERED: DILTIAZEM 125 MG in DEXTROSE 5% IN WATER 100 ML IV PRN (13:25)
[2019-03-08] MEDS ORDERED: ACETAMINOPHEN 1,000 MG/100 ML BOTTLE IV PRN (13:25)
[2019-03-08] MEDS ORDERED: IPRATROPIUM/ALBUTEROL 3 ML AMPUL.NEB NEB PRN (13:25)
[2019-03-09] MEDS: MUPIROCIN OINT 2% 22GM NARES SCH ×2 (03:26→09:52)
[2019-03-09] MEDS: traMADol 50 MG TABLET PO PRN (05:33)
[2019-03-09 05:53] LABS: Hemoglobin 14.6 g/dL (12.0-15.0); Mean Corpuscular HGB Conc 32.5 g/dL (31.0-36.0); Platelet Count 163 K/mcL (140-440); RBC 5.05 M/mcL (4.00-5.20); Red Cell Distribution Width 14.8 % (11.5-14.5); WBC 6.6 K/mcL (4.5-11.0)
[2019-03-09] MEDS: 0.9 % SODIUM CHLORIDE 10 ML SYRINGE IV SCH (06:03)
[2019-03-09 06:05] LABS: ALT/SGPT 20 U/l (0-40); AST/SGOT 25 U/l (0-37); Albumin 3.4 gm/dL (3.2-5.2); Albumin/Globulin Ratio 1.1 (1.0-2.3); Alkaline Phosphatase 74 U/L (39-117); Bilirubin,Total 0.4 mg/dL (0.0-1.0); Blood Urea Nitrogen 12 mg/dl (8-23); Calcium 8.8 mg/dl (8.6-10.4); Carbon Dioxide 23 mmol/L (22-30); Chloride 109 mmol/L (96-108); Glomerular Filtration Rate 106; Glucose 103 mg/dL (70-105)
[2019-03-09] MEDS ORDERED: PANTOPRAZOLE 40 MG TABLET PO SCH (07:30)
[2019-03-09] MEDS ORDERED: ACETAMINOPHEN 325 MG TABLET PO PRN (08:40)
[2019-03-09 09:00] LABS: Eosinophils % (Manual) 11 % (0-7); Lymphocytes % 32 % (15-49); Monocytes % (Manual) 8 % (1-12); Platelet Estimate NORMAL (NORMAL); RBC Morphology NORMAL (NORMAL); Reactive Lymphocytes 10 % (0-2); Segmented Neutrophils % 39 % (38-78)
[2019-03-09] MEDS ORDERED: LISINOPRIL 10 MG TABLET PO SCH (09:00)
[2019-03-09] MEDS ORDERED: ASPIRIN 81 MG TAB.CHEW CHEWED SCH (09:00)
[2019-03-09] MEDS ORDERED: MIRTAZAPINE 15 MG TABLET PO SCH (09:00)
[2019-03-09] MEDS: DILTIAZEM 30 MG TABLET PO SCH (09:50)
[2019-03-09] MEDS: APIXABAN 5 MG TABLET PO SCH (09:51)
[2019-03-09] MEDS: DOCUSATE SODIUM 100 MG CAPSULE PO SCH (09:53)
[2019-03-09] MEDS: FLUTICASONE/SALMETEROL 250/50 INHALER #14 INH SCH (09:53)
--- NOTE | 2019-03-09 11:22 | Discharge Summary ---
Medical - DS: Prov Patient information: Note initiated : 03/09/19 at 11:20 am Service Date, if different from initiated Date: [] Patient: Aurelia Pride 68 y/o F admitted on 03/06/19 for Rapid heart rate. Chief Complaint: [] Date of admission: 03/06/19 21:05 Discharge date: 03/09/19 Primary care physician: Hollis Chaudhry Consults: 03/06/19 Consult to Physician [CONS] Stat Comment: Consulting Provider: Bertrand Downey Reason For Exam: Physician to Consult Medical - DS: Meds - Discharge Medications Prescriptions: Diltiazem [Cardizem] 60 mg PO Q12 #120 tab Prescription Printed Apixaban [Eliquis] 5 mg PO BID #60 tab Prescription Printed Fluticasone Propion/Salmeterol [Fluticasone-Salmeterol 250-50] 1 each IH BID #1 blst.w.dev Prescription Printed Mirtazapine [Remeron] 15 mg PO QDAY #60 tab Prescription Printed Albuterol Sulfate [Ventolin] 2 puff INH Q4-6HP PRN #1 inhaler PRN Reason: Shortness Of Breath Or Wheezing Prescription Printed Lisinopril [Zestril] 10 mg PO DAILY #60 tab Prescription Printed Active and Home Medications: Home Medications Albuterol Sulfate [Ventolin] 2 puff INH Q4-6HP PRN #1 inhaler 03/09/19 [Rx Last Taken Unknown] Apixaban [Eliquis] 5 mg PO BID #60 tab 03/09/19 [Rx Last Taken Unknown] Diltiazem [Cardizem] 60 mg PO Q12 #120 tab 03/09/19 [Rx Last Taken Unknown] Fluticasone Propion/Salmeterol [Fluticasone-Salmeterol 250-50] 1 each IH BID #1 blst.w.dev 03/09/19 [Rx Last Taken Unknown] Lisinopril [Zestril] 10 mg PO DAILY #60 tab 03/09/19 [Rx Last Taken Unknown] Mirtazapine [Remeron] 15 mg PO QDAY #60 tab 03/09/19 [Rx Last Taken Unknown] Medical - DS: Hosp Hospital Course: 68-year-old female with a history of previous CVA x2, atrial fibrillation was not taking her medications admitted with worsening shortness of breath and A. fib RVR. She was given metoprolol in the ER which did not improve her heart rate then started on Cardizem drip. 03/07-her heart rate is 06/26/2019 this morning she was started on p.o. Cardizem 60 twice daily in addition to the Cardizem drip and she converted back to normal sinus rhythm her heart rate has been 60-70 and blood pressure is slightly elevated. We will continue monitoring her on telemetry and continue with the p.o. Cardizem. Ordered an echocardiogram troponin trend has been negative. She seems to be having drug-seeking behavior she was asked for benzodiazepine and narcotics. 03/08-she appears to be very weak physical therapy work with her and recommended rehab. Case management working on placement. Her heart rate has been controlled since yesterday and blood pressure is better controlled. 03/09-her heart rate has been very well controlled on the diltiazem and continued apixaban continued lisinopril blood pressure has been controlled. Patient has drug-seeking behavior and was asking for lorazepam and narcotics. I tried to educate her about the potential dependence and addiction Atrial fibrillation RVR-converted to normal sinus rhythm Patient was given metoprolol IV in the ER without any improvement Previous history of atrial fibrillation was not taking any medications or anticoagulation She was started on diltiazem bolus and continue titration She was also started on Cardizem 60 twice daily p.o. She was converted to normal sinus rhythm and we will monitor her telemetry next 24-hour and her heart rate needs to be controlled on p.o. Cardizem Stop Cardizem drip and continued p.o. Cardizem 60 twice daily Anticoagulation with apixaban Echocardiogram showed a mild to moderate mitral calcification, moderately dilated left atrium and LVEF systolic function is low normal-ejection fraction 50 to 55% Troponin trend has been negative TSH 4.5 continue outpatient Cardizem 60 twice daily, apixaban, lisinopril History of stroke Patient has been giving different narratives about her stroke Objectively no evidence of focal neuro deficit She has aphasia and right-sided weakness from previous stroke CT scan in the ER no new stroke-no new lesions identified but suggestive of focal deficit Continue aspirin 81 mg and anticoagulation History of essential hypertension- Uncontrolled hypertension blood pressure was more than 160 in the ER Monitor with the Cardizem drip and restart her lisinopril 10 mg Blood pressure has been controlled on Cardizem and lisinopril Probable COPD-not in any exacerbation DuoNeb's every 4 hours as needed and home inhaler Discharge diagnosis: Atrial fibrillation RVR Secondary discharge diagnosis: Uncontrolled hypertension - Time Spent with Patient Total time spent providing and/or coordinating discharge services: Greater than 30 minutes Medical - DS: Exam - Constitutional Vitals: Vital Signs Temp Pulse Resp BP BP BP Pulse Ox 03/09/19 06:54 97.9 F 20 138/88 95 03/09/19 03:10 98.3 F 83 16 130/63 98 03/09/19 00:00 98.8 F 68 16 131/72 98 03/08/19 20:00 98.8 F 66 16 131/72 98 03/08/19 18:40 99.0 F 105 H 20 130/76 95 03/08/19 16:21 98.8 F 64 14 129/63 94 03/08/19 12:28 99.0 F 21 92/78 93 Intake and Output 03/08/19 03/09/19 03/09/19 21:59 05:59 13:59 Intake Total 400 Output Total 727 377 450 Balance -727 23 -450 Intake: Oral 400 Output: Void Amount 725 375 450 # of times incontinent of urine 2 2 Other: Meal Dinner Percent of Meal Consumed 100% Feeding Ability Independent Urine Appearance Clear Clear Urine Color Pale Bright Yellow Urine Odor Normal # Voids 3 Weight 227 lb 11.2 oz General appearance: no acute distress, obese - Head Head exam: Present: atraumatic, normal inspection, normocephalic - Eye Eye exam: Absent: conjunctival injection - ENT ENT exam: Present: normal exam, normal external ear exam - Neck Neck exam: Absent: meningismus, tenderness - Respiratory Respiratory exam: Present: wheezes. Absent: accessory muscle use, respiratory distress - Cardiovascular Cardiovascular exam: Present: normal rate and rhythm. Absent: bradycardia, gallop, tachycardia - GI/Abdominal GI/Abdominal exam: Present: normal bowel sounds, soft, distended. Absent: bruit - Neurological Exam Neurological exam: Present: alert, oriented X3, reflexes normal. Absent: motor sensory deficit Medical - DS: Data Labs on day of discharge: Labs from last 24 hours 03/09/19 03/09/19 04:45 04:45 WBC 6.6 RBC 5.05 Hgb 14.6 Hct 45.0 MCV 89.0 MCH 28.9 MCHC 32.5 RDW 14.8 H Plt Count 163 MPV 9.0 Total Counted 100 Seg Neutrophils % 39 Band Neutrophils % Not Reportable Lymphocytes % 32 Monocytes % (Manual) 8 Eosinophils % (Manual) 11 H Reactive Lymphocytes 10 H Platelet Estimate Normal RBC Morphology Normal Sodium 144 Potassium 3.6 Chloride 109 H Carbon Dioxide 23 Anion Gap 12.0 BUN 12 Creatinine 0.4 L GFR Calculation 106 Glucose 103 Calcium 8.8 Magnesium 1.9 Total Bilirubin 0.4 AST 25 ALT 20 Alkaline Phosphatase 74 Total Protein 6.4 Albumin 3.4 Globulin 3.0 Albumin/Globulin Ratio 1.1 Medical - DS: A/P - Patient/Caregiver Discharge Instructions Activity: increase activity as tolerated Diet: Low Sodium (2gm), Cardiac Prescriptions: Diltiazem [Cardizem] 60 mg PO Q12 #120 tab Prescription Printed Apixaban [Eliquis] 5 mg PO BID #60 tab Prescription Printed Fluticasone Propion/Salmeterol [Fluticasone-Salmeterol 250-50] 1 each IH BID #1 blst.w.dev Prescription Printed Mirtazapine [Remeron] 15 mg PO QDAY #60 tab Prescription Printed Albuterol Sulfate [Ventolin] 2 puff INH Q4-6HP PRN #1 inhaler PRN Reason: Shortness Of Breath Or Wheezing Prescription Printed Lisinopril [Zestril] 10 mg PO DAILY #60 tab Prescription Printed Other Amb Orders: OT Discharge Order Location: None Selected Physical Therapy at Discharge - General Location: None Selected - Follow up Plan Follow up with: Hollis Chaudhry MD [Primary Care Provider] - (Please call and schedule a hospital follow up to be seen in 1-2 weeks.) Disposition: Xfer Other Care Plan Goals: This discharge packet is provided to you to help keep you informed about your care. We want to ensure you get everything you need when you go home. You will also be receiving a call from us in a few days to follow up with you and see how you are doing since your discharge. This gives us a chance to listen to any concerns you maybe experiencing since you were discharged or any additional needs you may have, as well as providing us feedback on your care experience. We strive to always provide excellent care and thank you for your feedback and for choosing [facility]. Prognosis: Fair Rehab Potential: Fair I certify that the patient requires SNF services: Yes Medical - DS: Qual - VTE Deep Vein Thrombosis/Pulmonary Embolism Present on Admission: No
== END 2019-03-09 11:35 | disposition other institution (70) | DRG 309 ==
LOC: ED 17:03 → ICU 21:05 → MEDSUR 03-08 19:50
PROVIDERS: ADMIT Internal Medicine; ATTEND Internal Medicine